=== PATIENT | male | born 1995 | race Caucasian/White ===

== ENCOUNTER → 2019-10-27 21:17 | Outpatient (CLI) | payer BC, SELFPAY ==
[2019-10-27 15:29] VITALS: BMI 23.3
[2019-10-27 21:33] LABS: Absolute Neutrophil Count 5.3 X10^3/uL (2.0-7.7); Basophil# 0.05 X10^3/uL; Basophil% 0.5 % (0-1); Eosinophil# 0.08 X10^3/uL; Eosinophils% 0.9 % (0-5); Hematocrit 48.7 % (40-54); Hemoglobin 16.5 g/dL (13.0-16.5); Lymphocyte % 33.8 % (19-41); Mean Corp Hgb Conc 33.9 g/dL (32-36); Mean Corpuscular Hgb 31.1 pg (27.0-32.0); Mean Corpuscular Volume 91.7 fL (80-94); Mean Platelet Vol. 10.6 fl (6.2-12.0); Monocyte# 0.58 X10^3/uL; Monocyte% 6.3 % (0-10); NRBC Flagged by Analyzer 0 % (0-5); Neutrophil # 5.33 X10^3/uL (2.7-7.7); Neutrophil % 58.2 % (47-70); Platelet Count 262 K/mm3 (150-450); RBC Distribution Width CV 11.7 % (11.6-14.6); RBC Distribution Width SD 39.1 fl (35.1-43.9); Red Blood Count 5.31 M/mm3 (4.6-6.2); White Blood Count 9.2 K/mm3 (4.4-11.0)
[2019-10-27 23:26] LABS: ALB/GLOB Ratio 1.2 RATIO (0.9-2.4); AST(SGOT) 15 U/L (15-37); Alanine Aminotransfer ALT/SGPT 35 U/L (16-61); Albumin, Serum 4.5 g/dL (3.2-5.0); Alkaline Phosphatase 64 U/L (45-117); Anion Gap 4 (5-15); BUN 13 mg/dL (7-18); BUN/Creat Ratio 12.1 RATIO (10-20); CRP, High Sensitivity Cardiac 0.53 mg/L; Calcium,Total 9.5 mg/dL (8.5-10.1); Chloride 104 mmol/L (98-107); Cholesterol 236 mg/dL (200); Creatinine, Serum 1.07 mg/dL (0.70-1.30); EST Glomerular Filtration Rate 91 mL/min (>60); Est Glom Filt Rate - Afr Amer 110 mL/min (>60); Globulin 3.6 g/dL (2.2-4.2); Glucose 100 mg/dL (74-106); High Density Lipoprotein 62 mg/dL; Magnesium 2.4 mg/dL (1.6-2.6); Potassium 4.6 mmol/L (3.5-5.1); Protein, Total 8.1 g/dL (6.4-8.2); Rheumatoid Factor < 10.0 IU/mL (<15); Sodium Level 139 mmol/L (136-145); Thyroid Stim Hormone (TSH) 2.73 uIU/mL (0.358-3.74); Triglycerides 195 mg/dL; Very Low Density Lipoprotein 39 mg/dL (5-40)
[2019-10-29 14:08] LABS: ANTINUCLEAR ANTIBODIES DIRECT Positive (Negative); Anti-Centromere B Ab <0.2 AI (0.0-0.9); Anti-Chromatin <0.2 AI (0.0-0.9); Anti-Jo <0.2 AI (0.0-0.9); Anti-Scleroderma-70 AB <0.2 AI (0.0-0.9); RNP Ab 2.5 AI (0.0-0.9); SJOGREN'S Anti-SS-A test < 0.2 AI (0.0-0.9); SJOGREN'S Anti-SS-B test < 0.2 AI (0.0-0.9); Smith Ab <0.2 AI (0.0-0.9)
[2019-10-30 14:46] LABS: Anti-dsDNA Ab <1 IU/mL (0-9)
== END ==
PROVIDERS: Visit Provider Nurse Practitioner
DX: R07.9 Chest pain, unspecified (principal); R42 Dizziness and giddiness; R00.2 Palpitations
CPT/HCPCS: 80053; 80061; 83735; 84443; 84484; 85025; 86038; 86141; 86225; 86235; 86431

== ENCOUNTER → 2019-11-15 12:43 | Outpatient (CLI) | payer BC, SELFPAY ==
[2019-11-03 10:55] VITALS: BMI 23.0
--- NOTE | 2019-11-15 12:47 | ECHOD_ITS ---
Reason For Study: ARRHYTHMIA Procedure This was a 2D Doppler, Color Flow transthoracic echocardiogram. Exam performed in department. Left Ventricle Normal LV size. Left ventricular systolic function is normal. The estimated ejection fraction is 60 %. No regional wall motion abnormalities noted. Right Ventricle Normal RV size. Normal systolic function. Atria Normal left atrium. Normal right atrium. Mitral Valve Normal mitral valve. Tricuspid Valve Normal tricuspid valve. Mild (1+) tricuspid valve insufficiency. Pulmonary artery systolic pressure is 30 mmHg. Aortic Valve Normal aortic valve. Trisinus/trileaflet aortic valve. Pulmonic Valve Normal pulmonic valve. Great Vessels Normal aortic root. The pulmonary artery is normal size. Normal inferior vena cava. Pericardium/Pleural No pericardial effusion. MMode/2D Measurements & Calculations LVIDd: 4.9 cm IVSd: 0.69 cm Ao root diam: 2.8 cm LVIDs: 3.4 cm LVPWd: 0.78 cm RVDd: 3.8 cm FS: 30.6 % LAV(MOD-bp): 48.2 ml LA A4 area: 17.0 cm2 LA dimension(2D): 2.9 cm LAV(MOD-bp) Indexed: 24.8 ml/m2 LAV(MOD-sp2): 46.9 ml LAV(MOD-sp4): 46.0 ml RA A4 area: 11.8 cm2 Time Measurements MV dec time: 0.25 sec Doppler Measurements & Calculations MV E max dusty: 80.5 cm/sec Lat Peak E' Dusty: 20.7 cm/sec Ao V2 max: 143.8 cm/sec MV A max dusty: 31.4 cm/sec E/E' lat: 3.9 Ao max P.3 mmHg MV E/A: 2.6 LV V1 max: 113.8 cm/sec MR max dusty: 12.7 cm/sec PA V2 max: 128.9 cm/sec LV V1 max P.2 mmHg MR max P.06 mmHg PI end-d dusty: 91.7 cm/sec TR max dusty: 256.0 cm/sec TR max P.3 mmHg Interpretation Summary Normal LV size. Left ventricular systolic function is normal. The estimated ejection fraction is 60 %. Pulmonary artery systolic pressure is 30 mmHg. Ordering Physician: Jefferson Garcia Referring Physician: DOUG MARIANO Performed By: Jailene Lobato, DAY, RVT
--- NOTE | 2019-11-15 17:22 | STRESSREP ---
Stress Test Report Exercise stress test. 24-year-old man with a history of chest pain. Stress protocol: Resting EKG demonstrates normal sinus rhythm with a rate of 78 bpm normal intervals are noted resting blood pressure is 144/82 mmHg. The patient exercised according to the regular Eduardo protocol for a total duration of 10 minutes the maximum heart rate was 169 bpm which was 85% of maximum predicted heart rate. The patient completed 1 minute into stage IV of the Eduardo protocol. The maximum workload was 11.7 metabolic equivalents. The patient maintained sinus rhythm throughout the recording. At rest there were no ST or T wave changes noted to suggest ischemia at peak exercise upsloping ST changes only were noted with did not meet the criteria for ischemia. The peak blood pressure was 170/80 mmHg rate-pressure product was 28,200. No clinical angina was noted the test was terminated due to leg fatigue. No arrhythmias were noted. Conclusion: Exercise stress test with no EKG criteria for ischemia at a high workload No arrhythmias noted.
== END ==
PROVIDERS: PCP Nurse Practitioner; Referring Provider Internal Medicine Cardiovascular Disease; Visit Provider Internal Medicine Cardiovascular Disease
DX: R00.2 Palpitations (principal)
CPT/HCPCS: 93017; 93306